=== PATIENT | female | born 1945 | race Caucasian/White ===

== ENCOUNTER 2017-07-21 16:22 | Emergency (ER) | payer MEDICARE ==
--- NOTE | 2017-07-21 17:26 | RAD ---
HISTORY: Abdominal pain COMPARISONS: None VIEWS: Frontal supine and upright views of the abdomen. FINDINGS: BOWEL: There is a nonobstructive bowel gas pattern. There is a large amount of stool within the colon. CALCULI: There are no abnormal calculi. BONES AND SOFT TISSUES: Degenerative changes are noted. OTHER FINDINGS: The lung bases are clear. There is no subphrenic gas. IMPRESSION: NONOBSTRUCTIVE BOWEL GAS PATTERN. LARGE AMOUNT OF STOOL THROUGHOUT THE COLON.
[2017-07-21 17:44] LABS: ABS Basophils 0 10^3/ul (0-0.2); ABS Eosinophils 0 10^3/ul (0-0.6); ABS Lymphocytes 0.4 10^3/ul (1.0-4.8); ABS Monocytes 0 10^3/ul (0-0.8); ABS Neutrophils 2.2 10^3/ul (1.5-7.7); ABS Nucleated RBC 0 10^3/ul; Eosinophil % 1.7 % (0-6); Hematocrit 39 % (35-47); Hemoglobin 13.2 g/dl (12.0-16.0); Lymphocyte % 16.5 % (25-47); Mean Corpuscular HGB Conc 34 g/dl (31-36); Mean Corpuscular Hemoglobin 32 pg (27-31); Mean Corpuscular Volume 93 fL (80-97); Mean Platelet Volume 8.1 um3 (7.4-10.4); Nucleated Red Blood Cells % 0.1; Platelet Count 170 10^3/ul (150-450); Red Blood Count 4.15 10^6/ul (4.0-5.4); Red Cell Distribution Width 15 % (10.5-15); White Blood Count 2.7 10^3/ul (3.5-10.8)
[2017-07-21 17:51] LABS: INR 0.9 (0.77-1.02)
[2017-07-21 17:58] LABS: EGFR Non-African American 85.3 (>60)
[2017-07-21] MEDS ORDERED: Polyethylene Glycol 3350* 17 GM PACKET PO PRN (18:17)
[2017-07-21] MEDS ORDERED: Magnesium CITRATE* 300 ML BTL PO ONE (18:17)
[2017-07-21] MEDS ORDERED: Sodium Phosphate ADULT ENEMA* 118 ml bottle PR ONE (18:17)
[2017-07-21] MEDS ORDERED: Polyethylene Glycol 3350* 17 GM PACKET ONE (18:23)
[2017-07-21] MEDS ORDERED: Ondansetron ODT TAB* 4 MG ONE (18:43)
[2017-07-21 18:45] VITALS: BP 149/70
[2017-07-21] MEDS ORDERED: Ondansetron ODT TAB* 4 MG PO ONE (18:47)
--- NOTE | 2017-07-22 07:29 | ED ---
Narayan Moyer Gabriel, scribed for Robbie Squires MD on 07/21/17 at 1756 . Abdominal Pain/Female - HPI Summary HPI Summary: This patient is a 72 year old F presenting to [facility] accompanied by her with a chief complaint of a possible bowel blockage. Pt had chemo on 07-15-17 for uterine cancer. She has not had a full BM in the last 12 days and has tried a suppository with no relief. She has also drank milk of magnesia which provided no relief and caused emesis. The patient rates the pain 4/10 in severity. Patient reports ABD pain. Dx lyme disease. - History of Current Complaint Chief Complaint: EDAbdPain Stated Complaint: SENT BY DR MUNOZ/FRANKI BOWEL OBS Time Seen by Provider: 07/21/17 16:59 Hx Obtained From: Patient Onset/Duration: Lasting Weeks, Still Present Timing: Constant Severity Initially: Mild Severity Currently: Mild Pain Intensity: 4 Pain Scale Used: 0-10 Numeric Location: Suprapubic Radiates: No Associated Signs and Symptoms: Positive: Constipation, Other: - ABD Allergies/Adverse Reactions: Allergies Allergy/AdvReac Type Severity Reaction Status Date / Time No Known Allergies Allergy Verified 07/21/17 16:25 PMH/Surg Hx/FS Hx/Imm Hx Endocrine/Hematology History: Denies: Hx Diabetes Cardiovascular History: Denies: Hx Hypertension Respiratory History: Denies: Hx Chronic Obstructive Pulmonary Disease (COPD) History: Denies: Hx Renal Disease - Cancer History Cancer Type, Location and Year: OVARIAN - Surgical History Surgery Procedure, Year, and Place: tubal, appendectomy Infectious Disease History: No Infectious Disease History: Denies: Traveled Outside the [place] in Last 30 Days - Family History Known Family History: Negative: Renal Disease, Respiratory Disease, Seizure Disorder - Social History Alcohol Use: Occasionally Substance Use Type: Reports: None Smoking Status (MU): Heavy Every Day Tobacco Smoker Review of Systems Gastrointestinal: Other - decreased BM Positive: Abdominal Pain - cramping , Vomiting Negative: Slurred Speech All Other Systems Reviewed And Are Negative: Yes Physical Exam - Summary Physical Exam Summary: VITAL SIGNS: Reviewed. GENERAL: Patient is a well-developed and nourished female who is lying comfortable in the stretcher. Patient is not in any acute respiratory distress. HEAD AND FACE: Normocephalic and atraumatic. EYES: PERRLA, EOMI x 2, No injected conjunctiva. EARS: Hearing grossly intact. Ear canals and tympanic membranes are WNL. MOUTH: Oropharynx within normal limits. NECK: Supple, trachea is midline, no adenopathy, no JVD. CHEST: Symmetric, no tenderness at palpation LUNGS: Clear to auscultation bilaterally. No wheezing or crackles. CVS: RRR, S1 and S2 present, no murmurs or gallops appreciated. ABDOMEN: Soft, TTP in suprapubic region. No signs of distention. Positive bowel sounds. No rebound no guarding, and no masses palpated. No abdominal bruit or pulsations. EXTREMITIES: FROM in all major joints, no edema, no cyanosis or clubbing. NEURO: Alert and oriented x 3. No acute neurological deficits. Speech is normal. SKIN: Dry and warm Triage Information Reviewed: Yes Vital Signs On Initial Exam: Initial Vitals Temp Pulse Resp BP Pulse Ox 97 F 111 15 133/85 93 07/21/17 16:25 07/21/17 16:25 07/21/17 16:25 07/21/17 16:25 07/21/17 16:25 Vital Signs Reviewed: Yes Diagnostics - Vital Signs Vital Signs Temp Pulse Resp BP Pulse Ox 07/21/17 16:25 97 F 111 15 133/85 93 - Laboratory Lab Results: Lab Results 07/21/17 Range/Units 17:30 WBC 2.7 L (3.5-10.8) 10^3/ul RBC 4.15 (4.0-5.4) 10^6/ul Hgb 13.2 (12.0-16.0) g/dl Hct 39 (35-47) % MCV 93 (80-97) fL MCH 32 H (27-31) pg MCHC 34 (31-36) g/dl RDW 15 (10.5-15) % Plt Count 170 (150-450) 10^3/ul MPV 8.1 (7.4-10.4) um3 Neut % (Auto) 79.7 (38-83) % Lymph % (Auto) 16.5 L (25-47) % Patrick % (Auto) 1.8 (0-7) % Eos % (Auto) 1.7 (0-6) % Baso % (Auto) 0.3 (0-2) % Absolute Neuts (auto) 2.2 (1.5-7.7) 10^3/ul Absolute Lymphs (auto) 0.4 L (1.0-4.8) 10^3/ul Absolute Monos (auto) 0 (0-0.8) 10^3/ul Absolute Eos (auto) 0 (0-0.6) 10^3/ul Absolute Basos (auto) 0 (0-0.2) 10^3/ul Absolute Nucleated RBC 0 10^3/ul Nucleated RBC % 0.1 Result Diagrams: 07/21/17 17:30 07/21/17 17:30 Lab Statement: Any lab studies that have been ordered have been reviewed, and results considered in the medical decision making process. - Radiology ABD Xray Radiology Interpretation Completed By: Radiologist - NONOBSTRUCTIVE BOWEL GAS PATTERN. LARGE AMOUNT OF STOOL THROUGHOUT THE COLON. ED physician has reviewed this radiology report. - EKG 1744 Cardiac Rate: NL EKG Rhythm: Sinus Rhythm - at 99 BPM EKG Interpretation: No ST elevations Re-Evaluation - Re-Evaluation First Eval Re-Evaluation Time: 18:41 Change: Unchanged Comment: I disucussed test results with the patient. Abdominal Pain Fem Course/Dx - Course Course Of Treatment: This patient is a 72 year old F presenting to [facility] accompanied by her with a chief complaint of a possible bowel blockage. Pt had chemo 07-15-17 for uterine cancer. She has not had a full BM in the last 12 days and has tried a suppository with no relief. She has also drank milk of magnesia which provided no relief and caused emesis. The patient rates the pain 4/10 in severity. Patient reports ABD pain. Dx lyme disease. An EKG reveals NSR no st elevation. ABD XR reveals, per radiologist, NONOBSTRUCTIVE BOWEL GAS PATTERN. LARGE AMOUNT OF STOOL THROUGHOUT THE COLON. Test results with no significant abnormalities except for WBC 2.7, glucose of 121, Bun of 29 , and CRP of 15.45. Declined rectal exam. In the ED course the patient was given Lactulose, magnesium citrate, miralax, and an enema. Dx constipation. Patient will be discharged with prescription for mallox and magnesium citrate and follow up from PCP. The patient is agreeable with this plan. - Diagnoses Differential Diagnosis: Positive: Bowel Obstruction, Constipation Provider Diagnoses: Constipation Discharge - Sign-Out/Discharge Documenting (check all that apply): Discharge - Discharge Plan Condition: Stable Disposition: HOME Prescriptions: Magnesium CITRATE* [Citrate of Magnesia*] 150 ml PO SEE INSTRUCTIONS #1 btl Polyethylene Glycol 3350* [Miralax*] 17 gm PO DAILY #12 packet Patient Education Materials: Constipation (ED) Referrals: Marcus Cox MD [Primary Care Provider] - 3 Days Additional Instructions: RETURN TO THE EMERGENCY DEPARTMENT FOR CHANGING OR WORSENING SYMPTOMS. - Billing Disposition and Condition Condition: STABLE Disposition: HOME The documentation as recorded by the Narayan wood Gabriel accurately reflects the service I personally performed and the decisions made by Shaw isbell Walter, MD.
== END 2017-07-21 18:44 | disposition home or self-care (01) ==
LOC: ED 16:22
DX: K59.00 Constipation, unspecified (principal); R10.9 Unspecified abdominal pain; F17.210 Nicotine dependence, cigarettes, uncomplicated; Z79.899 Other long term (current) drug therapy; C54.9 Malignant neoplasm of corpus uteri, unspecified
CPT/HCPCS: 36415; 74019; 80053; 82150; 83690; 84484; 85025; 85610; 85730; 86140; 86304; 93005; 99283; A9270-GY

== ENCOUNTER → 2017-11-29 09:53 | Emergency (ER) | payer MEDICARE ==
--- NOTE | 2017-11-29 10:32 | ED ---
Lower Extremity - HPI Summary HPI Summary: Patient presents with left ankle pain swelling and nonweightbearing since fall prior to arrival. She reports she was walking down her wooden stairs with treaded sneakers and she somehow slipped, twisting her ankle. 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 She is able to move her toes ankle knee and hip however she reports "discomfort" with moving her ankle. Pulses are intact. She is been treated with chemotherapy for ovarian cancer however reports a recent PET scan was clear and she is reported to be a "survivor". She has no known history of osteoporosis or osteopenia and no lytic lesions of her bones. She took acetaminophen prior to arrival however has not applied any ice nor taken any NSAIDs. She would like to try ice at this time. Only other injury she reports as a result of this fall as a mild abrasion to her left wrist and her right shoulder is a little bit sore as she was holding the railing when she fell. She has full range of motion here though and denies numbness tingling or weakness. 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 - Pain Intensity: 3 - Allergies/Home Medications Allergies/Adverse Reactions: Allergies Allergy/AdvReac Type Severity Reaction Status Date / Time No Known Allergies Allergy Verified 11/29/17 10:01 PMH/Surg Hx/FS Hx/Imm Hx Previously Healthy: Yes Endocrine/Hematology History: Denies: Hx Anticoagulant Therapy, Hx Blood Disorders, Hx Diabetes, Hx Unexplained Bleeding Cardiovascular History: Reports: Other Cardiovascular Problems/Disorders - PAT controlled w/ turmeric Denies: Hx Hypertension Respiratory History: Denies: Hx Chronic Obstructive Pulmonary Disease (COPD) History: Reports: Other Problems/Disorders - ovarian CA Denies: Hx Renal Disease Sensory History: Reports: Hx Contacts or Glasses Opthamlomology History: Reports: Hx Contacts or Glasses - Cancer History Cancer Type, Location and Year: OVARIAN Hx Chemotherapy: Yes - Surgical History Surgery Procedure, Year, and Place: tubal, appendectomy Infectious Disease History: Yes Infectious Disease History: Denies: Traveled Outside the [place] in Last 30 Days - Family History Known Family History: Negative: Renal Disease, Respiratory Disease, Seizure Disorder - Social History Occupation: Retired Lives: With Family Alcohol Use: Occasionally Hx Substance Use: No Substance Use Type: Reports: None Smoking Status (MU): Heavy Every Day Tobacco Smoker Review of Systems Constitutional: Negative Negative: Fatigue Cardiovascular: Negative Respiratory: Negative Gastrointestinal: Negative Positive: no symptoms reported Positive: Arthralgia, Myalgia, Decreased ROM, Edema Skin: Other - swollen skin over Lt lat ankle Neurological: Negative Psychological: Normal All Other Systems Reviewed And Are Negative: Yes Physical Exam Triage Information Reviewed: Yes Vital Signs On Initial Exam: Initial Vitals Temp Pulse Resp BP Pulse Ox 98 F 94 18 111/63 98 11/29/17 09:56 11/29/17 09:56 11/29/17 09:56 11/29/17 09:56 11/29/17 09:56 Vital Signs Reviewed: Yes Appearance: Positive: Well-Appearing, No Pain Distress, Thin Skin: Positive: Warm, Skin Color Reflects Adequate Perfusion, Dry - no erythema , no ecchymosis, no skin breakdown over ankle; superficial abrasion over Lt wrist - no bleeding Head/Face: Positive: Normal Head/Face Inspection Eyes: Positive: Normal, EOMI ENT: Positive: Hearing grossly normal, Pharynx normal - mucosa moist Dental: Negative: Dental Fracture @ Neck: Positive: Supple Respiratory/Lung Sounds: Positive: Breath Sounds Present Cardiovascular: Positive: Pulses are Symmetrical in both Upper and Lower Extremities Musculoskeletal: Positive: Strength/ROM Intact, Pain @ - Lt posterior lateral malleolus is TTP - gross edema about the prominence - otherwise, no gross deformity or tenderness over MT's, tibia, fibula or toes Neurological: Positive: Normal, Sensory/Motor Intact, Alert, Oriented to Person Place, Time, CN Intact II-III Psychiatric: Positive: Normal Procedures - Splinting Left Lower Extremity Hand-Made Type: plaster Splint: posterior walking - + U Pre-Proc Neuro Vasc Exam: normal Post-Proc Neuro Vasc Exam: normal Diagnostics - Vital Signs Vital Signs Temp Pulse Resp BP Pulse Ox 11/29/17 09:56 98 F 94 18 111/63 98 - Laboratory Lab Statement: Any lab studies that have been ordered have been reviewed, and results considered in the medical decision making process. Re-Evaluation - Re-Evaluation First Eval Change: Improved Lower Extremity Course/Dx - Course Course Of Treatment: XR: Brown type B fx of fibula w/ widening at the ankle mortise. N/v intact, no tenting and pain minimal. Ankle was splinted and pt provided w/ crutches to avoid wt bearing until seen by ortho. Zhen s/sx reviewed w/ pt and . - Diagnoses Provider Diagnoses: Closed fracture of left distal fibula Discharge - Sign-Out/Discharge Documenting (check all that apply): Patient Departure - Discharge Plan Condition: Stable Disposition: HOME Patient Education Materials: Ankle Fracture (ED), Crutch Instructions (ED), Splint Care (ED) Referrals: Uriah Herring MD [Medical Doctor] - Additional Instructions: REST, ICE, ELEVATE AND KEEP SPLINT CLEAN, DRY AND IN PLACE UNTIL SEEN BY ORTHOPEDICS. Call orthopedics today to schedule follow-up Avoid weight bearing by using your crutches You may take ibuprofen 600mg with food every 6 hours alternating with acetaminophen 650mg every 6 hours as needed for pain *If you develop numbness, tingling, weakness, swelling or skin discoloration, loosen NEEL wrap and elevate leg for 20 minutes. If symptoms persist, return to ED NOTE: anything you can do to reduce/quit smoking will aid in your bone healing along with adequate intake of calcium via dairy, leafy green vegetable, fish and almonds - Billing Disposition and Condition Condition: STABLE Disposition: Home
--- NOTE | 2017-11-29 10:45 | RAD ---
Indication: Lateral LEFT ankle pain and swelling post fall. Currently receiving chemotherapy for ovarian carcinoma. Comparison: October 18, 2013 LEFT foot radiographs. Technique: AP, mortise, and lateral views LEFT ankle. Report: Oblique fracture through the distal metaphysis of the fibula terminating inferiorly at the level of the ankle mortise with 3 mm lateral displacement and resulting widening of the lateral talocrural joint space. The syndesmosis appears intact. No additional fracture evident. Talocrural joint effusion. Small heel spurs. IMPRESSION: #. Brown type B fibular fracture with widening of the ankle mortise.
[2017-11-29 12:35] VITALS: BP 110/55
== END | disposition home or self-care (01) ==
LOC: ED 09:53
DX: S82.832A Other fracture of upper and lower end of left fibula, initial encounter for closed fracture (principal); S60.812A Abrasion of left wrist, initial encounter; M25.511 Pain in right shoulder; W10.9XXA Fall (on) (from) unspecified stairs and steps, initial encounter; Y93.01 Activity, walking, marching and hiking; Y92.008 Other place in unspecified non-institutional (private) residence as the place of occurrence of the external cause; G62.2 Polyneuropathy due to other toxic agents; T45.1X5A Adverse effect of antineoplastic and immunosuppressive drugs, initial encounter; Y92.9 Unspecified place or not applicable; C56.9 Malignant neoplasm of unspecified ovary; F17.200 Nicotine dependence, unspecified, uncomplicated
CPT/HCPCS: 99282

== ENCOUNTER 2018-01-28 08:00 | Day surgery (SDC) | payer MEDICARE ==
[~2018-01-28 08:00] MED LIST: Buffered Lidocaine 0.9% SYRIN* 5 ML/SYR SYRINGE INTRADERM ONE
[2018-01-28] MEDS ORDERED: ceFAZolin 2 GM in NS PREMIX(*) 2 GM/100 ML BAG IVPB ONE (08:14)
[2018-01-28] MEDS ORDERED: Buffered Lidocaine 0.9% SYRIN* 5 ML/SYR SYRINGE ONE (08:14)
[2018-01-28] MEDS ORDERED: Propofol* 500 MG/50 ML BTL ONE (08:25)
[2018-01-28] MEDS ORDERED: Midazolam* 1 MG/ML 2 ML VIAL (2 MG) ONE (08:26)
[2018-01-28] MEDS ORDERED: fentaNYL* 50 MCG/ML 2 ML VIAL (100 MCG VIAL) ONE (08:26)
[2018-01-28] MEDS ORDERED: Glycopyrrolate IV* 0.2 MG/ML 1 ML VIAL ONE (08:31)
[2018-01-28] MEDS ORDERED: Neostigmine Methylsulfate* 1 MG/ML 10 ML VIAL (1 mg/ml) ONE (08:31)
[2018-01-28] MEDS ORDERED: Metoclopramide IV* 5 MG/ML 2 ML VIAL ONE (08:33)
[2018-01-28] MEDS ORDERED: Lidocaine 1% INJ* 10 MG/ML 30 ML SDV ONE (08:53)
[2018-01-28] MEDS ORDERED: Lidocaine 2% PF * 5 ML VIAL ONE ×2 (09:35→09:39)
[2018-01-28] MEDS ORDERED: Acetaminophen TAB* 325 MG PO PRN (09:52)
[2018-01-28] MEDS ORDERED: fentaNYL* 50 MCG/ML 2 ML VIAL (100 MCG VIAL) IV PRN (09:52)
[2018-01-28] MEDS ORDERED: Ondansetron INJ* 2 MG/ML VIAL IV PRN (09:52)
[2018-01-28] MEDS ORDERED: Naloxone* 0.4 MG/ML 1 ML VIAL IV PRN (09:52)
--- NOTE | 2018-01-28 10:34 | BRIEFOPN ---
Brief Operative Note - Surgery Procedures: PRE/POSTOP DX: OVARIAN CA PROC: POWER PORT PLACEMENT, R SUBCLAVIAN SURG: MECENAS ASSIST: NONE ANES: LOCAL/MAC; NOEL EBL: MIN IVF: LR SPEC: NONE DRAIN: NONE COMPL: NONE COND: STABLE TO RR
[2018-01-28 10:57] VITALS: BP 116/80
--- NOTE | 2018-01-28 11:21 | RAD ---
Indication: Post RIGHT chest port placement. Comparison: January 15, 2018 CT. Technique: Upright AP 1055 hours Report: Tip of RIGHT chest port at level of superior vena cava RIGHT atrial junction. Elevated lung volumes and both diffuse mild prominence of the interstitial markings and patchy rarefaction of the mid to upper lung zone interstitial markings. No focal pulmonary lesion, compelling alveolar consolidation, pleural effusion, pneumothorax. The heart, pulmonary vasculature, and mediastinal contours are unremarkable bone density appears decreased throughout. No fracture or focal osseous lesions evident. IMPRESSION: #. Tip of RIGHT chest port at level of superior vena cava RIGHT atrial junction. #. Negative for pneumothorax. #. Stigmata of chronic obstructive pulmonary disease and emphysema.
--- NOTE | 2018-01-28 11:30 | RAD ---
INDICATION: chest port placement COMPARISONS: None relevant TECHNIQUE: Fluoroscopy was provided for a vascular access procedure. Total fluoroscopy time is: 9.6 seconds FINDINGS: Spot images demonstrate a right-sided chest port with the tip overlying the cavoatrial junction. IMPRESSION: FLUOROSCOPY WAS PROVIDED FOR A VASCULAR ACCESS PROCEDURE CPT II Codes: G9500
--- NOTE | 2018-01-29 06:32 | OP ---
CC: Mariam Echevarria MD; Marcus Cox MD * DATE OF OPERATION: 01/28/18 - [facility] DATE OF : 47 SURGEON: Jarad Evans MD COPY COORDINATOR: None. ANESTHESIOLOGIST: Rhea Mcnair DO ANESTHESIA: Local MAC. PRE-OP DIAGNOSIS: Ovarian carcinoma. POST-OP DIAGNOSIS: Ovarian carcinoma. OPERATIVE PROCEDURE: PowerPort placement, right subclavian. ESTIMATED BLOOD LOSS: 5 mL. IV FLUIDS: Crystalloids. SPECIMENS: None. DRAINS: None. COMPLICATIONS: None. COUNTS: Instrument, needle, and sponge counts correct. DESCRIPTION OF PROCEDURE: The patient was brought to the operating room and placed on the table supine. A shoulder roll was placed and she was positioned with the arms tucked at the side. She was administered intravenous sedation. She was administered appropriate intravenous antibiotics and then prepped and draped in the usual sterile fashion. The time-out was performed. Local anesthetic was infiltrated for a right subclavian approach. The right subclavian vein was cannulated on first pass with a needle. The guidewire was placed into the superior vena cava and its position confirmed under fluoroscopy. The pocket site was selected on the upper right chest and infiltrated with local anesthetic, then a transverse incision was created, and the subcutaneous tissues were divided with cautery, and the pocket was created inferior to the incision. A counterincision was made at the guidewire insertion site and an 8-Latvian PowerPort catheter was back tunneled into the pocket. The peel-away sheath and dilator were then advanced into the superior vena cava over the guidewire under fluoroscopic guidance. The dilator and wire were removed, and the catheter was advanced to the atriocaval junction. The catheter was cut to 28 cm and connected to the port, which was placed into the pocket. It was accessed, it annalise and flushed easily. The port was secured with a single suture of 2-0 Prolene. The catheter was flushed with heparinized saline. Each incision was closed in 2 layers with 3-0 Vicryl for the subcutaneous tissue and 4-0 Monocryl for the skin in a subcuticular fashion. Steri-Strips were applied with Tegaderm dressing. The patient tolerated the procedure well and was transferred to Recovery in stable condition. Postprocedure x-ray revealed the catheter to be in good position and no evidence of pneumothorax. [id number]/[facility] #: [id number] [facility]
== END 2018-01-28 11:23 | disposition home or self-care (01) ==
LOC: OR 08:00
PROVIDERS: ATTEND Surgery
DX: C56.1 Malignant neoplasm of right ovary (principal); I47.1 Supraventricular tachycardia; Z72.0 Tobacco use
CPT/HCPCS: 71045; 76000; C1788; J0690; J1642; J2250; J2704; J2710; J2765; J3010

== ENCOUNTER 2020-11-08 06:07 | Observation (INO) ==
[2020-11-08 07:02] LABS: ABS Eosinophils 0.3 10^3/ul (0-0.6); ABS Lymphocytes 1.6 10^3/ul (1.0-4.8); ABS Monocytes 0.6 10^3/ul (0-0.8); ABS Neutrophils 3.1 10^3/ul (1.5-7.7); Eosinophil % 5.5 %; Hematocrit 40 % (35-47); Hemoglobin 13.7 g/dL (12.0-16.0); Lymphocyte % 29.3 %; Mean Corpuscular HGB Conc 34 g/dL (31-36); Mean Corpuscular Hemoglobin 32 pg (27-31); Mean Corpuscular Volume 94 fL (80-97); Mean Platelet Volume 6.8 fL (7.4-10.4); Platelet Count 260 10^3/uL (150-450); Red Blood Count 4.25 10^6 /uL (3.70-4.87); Red Cell Distribution Width 14 % (10-15); White Blood Count 5.6 10^3/uL (3.5-10.8)
[2020-11-08 07:14] LABS: Albumin 4.2 g/dL (3.2-5.2); Calcium 9.6 mg/dL (8.6-10.3); Potassium 3.8 mmol/L (3.5-5.0); Total Bilirubin 0.4 mg/dL (0.2-1.0)
[2020-11-08 07:20] LABS: Albumin/Globulin Ratio 1.4 (1-3); EGFR African American 105.9 (>60); EGFR Non-African American 87.5 (>60); Globulin 2.9 g/dL (2-4); Total Protein 7.1 g/dL (6.4-8.9)
[2020-11-08] MEDS ORDERED: Iohexol 350 (CONTRAST) 500 ML MDV IV ONE (07:51)
[2020-11-08 09:54] LABS: Troponin I 0.03 ng/mL (<0.03)
[2020-11-08 13:11] LABS: Troponin I 0.06 ng/mL (<0.03)
[2020-11-08] MEDS ORDERED: Heparin 5000 UNITS/ML 1 mL VIAL SUBCUT SCH (14:00)
[2020-11-08] MEDS ORDERED: Heparin DRIP 25,000 UNITS BAG 25,000 UNITS/500 ML BAG IV SCH (14:45)
[2020-11-08] MEDS ORDERED: Heparin 5000 UNITS/ML 1 mL VIAL IV SCH ×2 (15:00→18:00)
[2020-11-08] MEDS ORDERED: diPHENhydraMINE 25 mg TAB PO PRN (15:16)
[2020-11-08] MEDS ORDERED: Midazolam 5 mg/5 ml VIAL 1 mg/ml 5 ml VIAL (5 mg) ONE (15:27)
[2020-11-08] MEDS ORDERED: Heparin 1,000 UNIT/ML 10 ml (10,000 UNITS) CATHLAB/DIALYSIS ONE (15:28)
[2020-11-08] MEDS ORDERED: nitroGLYCERIN DRIP 25,000 MCG/250 ML BTL ONE (15:28)
[2020-11-08] MEDS ORDERED: VERAPAMIL 2.5 MG/ML 2 ML VIAL ** 5 mg/2 ml ONE ×2 (15:28→16:44)
[2020-11-08] MEDS ORDERED: fentaNYL 100 mcg/2 ml 50 MCG/ML VIAL ONE (15:28)
[2020-11-08] MEDS ORDERED: Heparin 2 UNITS/ML 1000 mls 3,000 ML IV ONE (15:28)
[2020-11-08] MEDS ORDERED: Iohexol 350 (CONTRAST) 200 ML MDV IV ONE ×2 (15:28→17:07)
[2020-11-08] MEDS ORDERED: Lidocaine 1% VIAL 10 MG/ML VIAL ONE (15:28)
[2020-11-08] MEDS ORDERED: NS 0.9% 1000 ml BAG 1,000 ML IV SCH ×2 (15:30→17:45)
[2020-11-08 16:05] LABS: Blood Urea Nitrogen 16 mg/dL (6-24); EGFR African American 105.9 (>60); EGFR Non-African American 87.5 (>60)
[2020-11-08] MEDS ORDERED: Calcium Carb (TUMS) 500 mg CHEW TAB PO PRN (16:10)
[2020-11-08 16:44] LABS: Troponin I 0.05 ng/mL (<0.03)
[2020-11-08] MEDS ORDERED: Nitro 2% OINT (Nitroglycerin) 1 INCH/PAK TOPICAL ONE (19:47)
[2020-11-08 20:14] VITALS: BP 116/64
[2020-11-09] MEDS ORDERED: Heparin DRIP 25,000 UNITS BAG 25,000 UNITS/500 ML BAG IV SCH
[2020-11-09] MEDS ORDERED: Nitro Patch/OINT Remove PATCH PATCH OFF ONE (02:30)
== END 2020-11-08 20:00 | disposition short-term general hospital (02) ==
LOC: ED 06:07 → MEDTELE 06:07 → ICU 18:10
PROVIDERS: ADMIT Internal Medicine; ATTEND Internal Medicine Critical Care Medicine

== ENCOUNTER 2021-05-15 03:43 | Inpatient (IN) ==
[2021-05-15] MEDS ORDERED: NS 0.9% 1000 ml BAG 1,000 ML IV ONE ×2 (04:07→07:12)
[2021-05-15] MEDS ORDERED: Al Hydrox/Mg Hydrox/Simet LIQ 30 ML UDC PO ONE (04:08)
[2021-05-15] MEDS ORDERED: Ondansetron ODT 4 mg TAB 4 MG TAB SL ONE (04:09)
[2021-05-15] MEDS ORDERED: Lidocaine 2.5%/Prilocain 2.5% 5 GM TUBE TOPICAL ONE (04:40)
[2021-05-15] MEDS ORDERED: HYDROcodone/ACETAMIN 5/325 mg TAB PO ONE (05:19)
[2021-05-15] MEDS ORDERED: Tetan/Diph/Pertus SYR(Tdap) 0.5 ML SYR(BOOSTRIX) use SYR contains LATEX IM ONE (05:21)
[2021-05-15 06:10] LABS: ABS Lymphocytes 0.3 10^3/ul (1.0-4.8); ABS Neutrophils 6.6 10^3/ul (1.5-7.7); Hematocrit 36 % (35-47); Hemoglobin 12.1 g/dL (12.0-16.0); Lymphocyte % 4.3 %; Mean Corpuscular HGB Conc 34 g/dL (31-36); Mean Corpuscular Hemoglobin 29 pg (27-31); Mean Corpuscular Volume 87 fL (80-97); Mean Platelet Volume 6.6 fL (7.4-10.4); Platelet Count 512 10^3/uL (150-450); Red Blood Count 4.13 10^6 /uL (3.70-4.87); Red Cell Distribution Width 15 % (10-15)
[2021-05-15 06:28] LABS: Albumin 2.6 g/dL (3.2-5.2); Albumin/Globulin Ratio 0.8 (1-3); Calcium 8.8 mg/dL (8.6-10.3); Globulin 3.2 g/dL (2-4); Magnesium 3.1 mg/dL (1.9-2.7); Total Bilirubin 0.4 mg/dL (0.2-1.0); Total Protein 5.8 g/dL (6.4-8.9); eGFR CKD-EPI 56.7 (>60)
[2021-05-15 06:29] LABS: Troponin I 0.02 ng/mL (<0.03)
[2021-05-15 06:46] LABS: Potassium 6.3 mmol/L (3.5-5.0)
[2021-05-15] MEDS ORDERED: Iodixanol (CONTRAST) 320 MG/ML 100 ML SDV IV ONE (08:28)
[2021-05-15] MEDS ORDERED: Pantoprazole VIAL 40 MG VIAL IV ONE (09:12)
[2021-05-15] MEDS ORDERED: Lidocaine 2.5%/Prilocain 2.5% 5 GM TUBE TOPICAL PRN (09:43)
[2021-05-15] MEDS ORDERED: Dextran 70/Hypromellose Tears Eye Drops 15 ml BTL (for Artificials Tears) BOTH EYES PRN (09:43)
[2021-05-15] MEDS ORDERED: NS 0.9% 1000 ml BAG 1,000 ML IV SCH (09:45)
[2021-05-15] MEDS ORDERED: Hydrocortisone INJ 100 MG/2ML 2 ML VIAL IV SCH ×2 (10:00→21:00)
[2021-05-15] MEDS ORDERED: Enoxaparin 40 MG/0.4 ML SYR SUBCUT SCH (10:00)
[2021-05-15] MEDS: Enoxaparin 40 MG/0.4 ML SYR SUBCUT SCH (14:20)
[2021-05-15] MEDS: Hydrocortisone INJ 100 MG/2ML 2 ML VIAL IV SCH (14:20)
[2021-05-15] MEDS ORDERED: Sodium Polystyrene ORAL.SUSP 15 GM/60 ML BTL ONE (20:00)
[2021-05-15] MEDS ORDERED: Sodium Polystyrene ORAL.SUSP 15 GM/60 ML BTL PO SCH (20:00)
[2021-05-15 20:26] LABS: Calcium 7.7 mg/dL (8.6-10.3); eGFR CKD-EPI 70.4 (>60)
[2021-05-15 20:27] LABS: Potassium 5.7 mmol/L (3.5-5.0)
[2021-05-15 21:00] LABS: Osmolality Serum 295 mOsm/kg (275-295)
[2021-05-15] MEDS ORDERED: Ure-Na 15 GM POWD.PACK PO SCH (21:00)
[2021-05-15 21:43] LABS: TSH Ultra Thyroid Stim Horm 0.51 mcIU/mL (0.34-5.60)
[2021-05-15] MEDS: Albumin Human 25% 25 GM/100 ML BTL IV SCH (22:39)
[2021-05-15 23:20] LABS: Urine Osmo 803 mOsm/kg (150-1150)
[2021-05-16] MEDS: Albumin Human 25% 25 GM/100 ML BTL IV SCH ×4 (01:15→14:02)
[2021-05-16] MEDS: Morphine 2 MG/ML SYRINGE IV PRN ×3 (04:00→22:58)
[2021-05-16] MEDS: Levothyroxine 100 MCG/5 ML VIAL IV SCH (05:23)
[2021-05-16 06:27] LABS: ABS Lymphocytes 0.3 10^3/ul (1.0-4.8); ABS Neutrophils 1.6 10^3/ul (1.5-7.7); Eosinophil % 0.5 %; Hematocrit 27 % (35-47); Hemoglobin 9.3 g/dL (12.0-16.0); Lymphocyte % 17.9 %; Mean Corpuscular HGB Conc 34 g/dL (31-36); Mean Corpuscular Hemoglobin 30 pg (27-31); Mean Corpuscular Volume 88 fL (80-97); Mean Platelet Volume 6.5 fL (7.4-10.4); Platelet Count 273 10^3/uL (150-450); Red Blood Count 3.06 10^6 /uL (3.70-4.87); Red Cell Distribution Width 15 % (10-15); White Blood Count 1.9 10^3/uL (3.5-10.8)
[2021-05-16 06:50] LABS: Albumin 2.6 g/dL (3.2-5.2); Albumin/Globulin Ratio 1.1 (1-3); Calcium 7.7 mg/dL (8.6-10.3); Globulin 2.3 g/dL (2-4); Total Bilirubin 0.4 mg/dL (0.2-1.0); Total Protein 4.9 g/dL (6.4-8.9); eGFR CKD-EPI 80.4 (>60)
[2021-05-16] MEDS: Pantoprazole VIAL 40 MG VIAL IV SCH (08:01)
[2021-05-16] MEDS: Prochlorperazine 5 mg/ml 2 ml VIAL (10 mg) IV PRN (08:02)
[2021-05-16] MEDS: Hydrocortisone INJ 100 MG/2ML 2 ML VIAL IV SCH (08:29)
[2021-05-16] MEDS: Enoxaparin 40 MG/0.4 ML SYR SUBCUT SCH (14:07)
[2021-05-16] MEDS: Ondansetron 4 mg VIAL 2 MG/ML 2 ml VIAL IV PRN (15:30)
[2021-05-16] MEDS: D5W NS IVFLUID 1000 ML IV SCH (18:12)
[2021-05-17] MEDS: Prochlorperazine 5 mg/ml 2 ml VIAL (10 mg) IV PRN ×2 (01:22→14:37)
[2021-05-17] MEDS: Morphine 2 MG/ML SYRINGE IV PRN ×4 (03:15→20:24)
[2021-05-17 03:38] LABS: Hematocrit 27 % (35-47); Hemoglobin 9.2 g/dL (12.0-16.0); Mean Corpuscular HGB Conc 34 g/dL (31-36); Mean Corpuscular Hemoglobin 30 pg (27-31); Mean Corpuscular Volume 88 fL (80-97); Mean Platelet Volume 6.3 fL (7.4-10.4); Platelet Count 188 10^3/uL (150-450); Red Blood Count 3.08 10^6 /uL (3.70-4.87); Red Cell Distribution Width 15 % (10-15)
[2021-05-17 03:49] LABS: ABS Lymphocytes 0.4 10^3/ul (1.0-4.8); ABS Neutrophils 0.8 10^3/ul (1.5-7.7); Eosinophil % 1.4 %
[2021-05-17 03:50] LABS: White Blood Count 1.3 10^3/uL (3.5-10.8)
[2021-05-17 03:54] LABS: ALT 32 U/L (7-52); AST 38 U/L (13-39); Albumin 3.4 g/dL (3.2-5.2); Albumin/Globulin Ratio 1.9 (1-3); Alkaline Phosphatase 68 U/L (35-149); Anion Gap 6 mmol/L (2-11); Blood Urea Nitrogen 37 mg/dL (6-24); CO2 Carbon Dioxide 23 mmol/L (22-32); Chloride 106 mmol/L (101-111); Globulin 1.8 g/dL (2-4); Glucose 125 mg/dL (70-100); Magnesium 2.9 mg/dL (1.9-2.7); Potassium 3.9 mmol/L (3.5-5.0); Sodium 135 mmol/L (135-145); Total Protein 5.2 g/dL (6.4-8.9); eGFR CKD-EPI 90.8 (>60)
[2021-05-17] MEDS: D5W NS IVFLUID 1000 ML IV SCH ×2 (04:43→15:56)
[2021-05-17] MEDS: Levothyroxine 100 MCG/5 ML VIAL IV SCH (04:48)
[2021-05-17] MEDS: Ondansetron 4 mg VIAL 2 MG/ML 2 ml VIAL IV PRN ×2 (07:45→19:30)
[2021-05-17] MEDS: Pantoprazole VIAL 40 MG VIAL IV SCH (07:45)
[2021-05-17 10:29] LABS: Troponin I 0.03 ng/mL (<0.03)
[2021-05-17 11:10] LABS: Prealbumin 9 mg/dL (18-38)
[2021-05-17 11:26] LABS: Troponin I 0.03 ng/mL (<0.03)
[2021-05-17] MEDS: Albumin Human 25% 25 GM/100 ML IV SCH (11:26)
[2021-05-17 11:29] LABS: Urine Appearance Cloudy; Urine Bilirubin Negative (Negative); Urine Blood Negative (Negative); Urine Color Amber; Urine Glucose 1+(50 mg/dL) (Negative); Urine Ketones 1+ (Negative); Urine Nitrite Negative (Negative); Urine Protein 2+(100 mg/dL) (Negative); Urine Urobilinogen Negative (Negative)
[2021-05-17 11:31] LABS: Urine Bacteria Absent (Absent); Urine Granular Casts Present (Absent); Urine Red Blood Cell 1+(3-5/hpf) (Absent); Urine Squamous Epithelial Cell Present (Absent); Urine White Blood Cell Trace(0-5/hpf) (Absent)
[2021-05-17] MEDS ORDERED: Albumin Human 25% 25 GM/100 ML IV SCH ×2 (13:00→15:00)
[2021-05-17] MEDS: Albumin Human 25% 25 GM/100 ML BTL IV SCH (14:29)
[2021-05-17] MEDS: Enoxaparin 40 MG/0.4 ML SYR SUBCUT SCH (14:38)
[2021-05-18] MEDS: Morphine 2 MG/ML SYRINGE IV PRN ×3 (00:55→08:35)
[2021-05-18] MEDS: D5W NS IVFLUID 1000 ML IV SCH (01:00)
[2021-05-18] MEDS: Prochlorperazine 5 mg/ml 2 ml VIAL (10 mg) IV PRN (05:10)
[2021-05-18 05:13] LABS: Hematocrit 26 % (35-47); Hemoglobin 8.8 g/dL (12.0-16.0); Mean Corpuscular HGB Conc 34 g/dL (31-36); Mean Corpuscular Hemoglobin 30 pg (27-31); Mean Corpuscular Volume 88 fL (80-97); Mean Platelet Volume 6.5 fL (7.4-10.4); Platelet Count 95 10^3/uL (150-450); Red Blood Count 2.98 10^6 /uL (3.70-4.87); Red Cell Distribution Width 15 % (10-15); White Blood Count 7.9 10^3/uL (3.5-10.8)
[2021-05-18 05:31] LABS: Albumin/Globulin Ratio 2.4 (1-3); Calcium 8.5 mg/dL (8.6-10.3); Globulin 1.7 g/dL (2-4); Magnesium 2.5 mg/dL (1.9-2.7); Potassium 3.4 mmol/L (3.5-5.0); Total Bilirubin 0.5 mg/dL (0.2-1.0); Total Protein 5.7 g/dL (6.4-8.9); eGFR CKD-EPI 95.1 (>60)
[2021-05-18 05:46] LABS: ABS Lymphocytes 0.3 10^3/ul (1.0-4.8); ABS Monocytes 0.1 10^3/ul (0-0.8); ABS Neutrophils 7.4 10^3/ul (1.5-7.7); Eosinophil % 0.4 %; Lymphocyte % 4.3 %
[2021-05-18] MEDS: Levothyroxine 100 MCG/5 ML VIAL IV SCH (05:54)
[2021-05-18] MEDS: Albumin Human 25% 25 GM/100 ML IV SCH (08:26)
[2021-05-18] MEDS: Pantoprazole VIAL 40 MG VIAL IV SCH (08:27)
[2021-05-18] MEDS: Ondansetron 4 mg VIAL 2 MG/ML 2 ml VIAL IV PRN (08:42)
[2021-05-18] MEDS: Albumin Human 25% 25 GM/100 ML BTL IV SCH (11:02)
[2021-05-18 12:04] VITALS: BP 114/50
== END 2021-05-18 13:20 | disposition short-term general hospital (02) | DRG 389 ==
LOC: ED 03:43 → EDHOLD 09:35 → SSU 12:38
PROVIDERS: ADMIT Internal Medicine Medical Oncology; ATTEND Internal Medicine Medical Oncology